=== PATIENT | female | born 1960 | race Two or more races ===

== ENCOUNTER 2018-06-08 10:14 | Day surgery (SDC) | payer OTHER | END 2018-06-08 15:16 | disposition home or self-care (01) | LOC: GIL 10:14 | DX: Z12.11 Encounter for screening for malignant neoplasm of colon (principal); K64.8 Other hemorrhoids; K57.30 Diverticulosis of large intestine without perforation or abscess without bleeding; I10 Essential (primary) hypertension | CPT/HCPCS: 45378 ==